=== PATIENT | male | born 1965 | race Caucasian/White ===

== ENCOUNTER 2020-02-29 15:43 | Outpatient (CLI) | payer BC ==
[2020-02-29 16:03] LABS: BASOPHILS # (AUTO) 0.1 10^3/uL (0.0-0.1); BASOPHILS % (AUTO) 1.2 %; EOSINOPHILS # (AUTO) 0.6 10^3/uL (0.0-0.7); EOSINOPHILS % (AUTO) 6.7 %; HGB - HEMOGLOBIN 11.5 g/dL (14.0-18.0); LYMPHOCYTES # (AUTO) 1.9 10^3/uL (1.5-3.5); LYMPHOCYTES % (AUTO) 22.4 %; MEAN CORPUSCULAR HEMOGLOBIN 28.4 pg (27.0-31.0); MEAN CORPUSCULAR HGB CONC 30.2 g/dL (32.0-36.0); MEAN CORPUSCULAR VOLUME 94.1 fL (80.0-94.0); MEAN PLATELET VOLUME 9.7 fL (7.4-11.4); MONOCYTES # (AUTO) 0.7 10^3/uL (0.0-1.0); MONOCYTES % (AUTO) 8.3 %; NEUTROPHILS % (AUTO) 60.9 %; PLT - PLATELET COUNT 236 10^3/uL (130-450); RED BLOOD COUNT 4.05 10^6/uL (4.70-6.10); RED CELL DISTRIBUTION WIDTH 14.2 % (12.0-15.0); WHITE BLOOD COUNT 8.3 x10^3/uL (4.8-10.8)
[2020-02-29 16:16] LABS: INR 2.1 (0.8-1.2); PT - PROTHROMBIN TIME 22.5 secs (9.9-12.6)
[2020-02-29 16:20] LABS: ALBUMIN 4.5 g/dL (3.2-5.5); ALBUMIN/GLOBULIN RATIO 1.7 (1.0-2.2); ALKALINE PHOSPHATASE 66 IU/L (42-121); ALT ALANINE AMINOTRANSFERASE 40 IU/L (10-60); AST ASPARTATE AMINOTRANSFERASE 31 IU/L (10-42); BILIRUBIN,TOTAL 0.8 mg/dL (0.2-1.0); BUN - BLOOD UREA NITROGEN 21 mg/dL (6-20); CALCIUM 9.5 mg/dL (8.5-10.3); CARBON DIOXIDE - CO2 28 mmol/L (21-32); CHLORIDE 103 mmol/L (101-111); CREATININE 1.1 mg/dL (0.6-1.2); GLUCOSE 106 mg/dL (70-100); SODIUM 139 mmol/L (135-145); TOTAL PROTEIN 7.2 g/dL (6.7-8.2)
[2020-02-29 16:55] LABS: CRP - C-REACTIVE PROTEIN < 1.0 mg/dL (0-1.0)
== END 2020-02-29 15:44 | disposition home or self-care (01) ==
LOC: LAB 15:43
PROVIDERS: ATTEND Family Medicine
DX: D64.9 Anemia, unspecified (principal); Z95.2 Presence of prosthetic heart valve
CPT/HCPCS: 36415; 80053; 84443; 85025; 85610; 85651; 85730; 86140

== ENCOUNTER 2020-03-07 15:44 | Outpatient (CLI) | payer BC ==
[2020-03-07 16:27] LABS: INR 1.9 (0.8-1.2); PT - PROTHROMBIN TIME 21.1 secs (9.9-12.6)
== END 2020-03-07 15:45 | disposition home or self-care (01) ==
LOC: LAB 15:44
PROVIDERS: ATTEND Family Medicine
DX: Z95.2 Presence of prosthetic heart valve (principal)
CPT/HCPCS: 36415; 85610

== ENCOUNTER 2020-05-06 12:14 | Outpatient (CLI) | payer BC ==
[2020-05-06 12:47] LABS: INR 1.4 (0.8-1.2); PT - PROTHROMBIN TIME 15.6 secs (9.9-12.6)
== END 2020-05-06 12:15 | disposition home or self-care (01) ==
LOC: LAB 12:14
PROVIDERS: ATTEND Family Medicine
DX: Z95.2 Presence of prosthetic heart valve (principal)
CPT/HCPCS: 36415; 85610

== ENCOUNTER 2020-05-16 15:48 | Outpatient (CLI) | payer BC ==
[2020-05-16 16:09] LABS: INR 1.7 (0.8-1.2); PT - PROTHROMBIN TIME 18.4 secs (9.9-12.6)
== END 2020-05-16 15:49 | disposition home or self-care (01) ==
LOC: LAB 15:48
PROVIDERS: ATTEND Family Medicine
DX: Z95.2 Presence of prosthetic heart valve (principal)
CPT/HCPCS: 36415; 85610

== ENCOUNTER 2020-06-08 13:24 | Outpatient (CLI) | payer BC | END 2020-06-08 13:25 | disposition home or self-care (01) | LOC: LAB 13:24 | PROVIDERS: ATTEND Family Medicine | DX: I48.91 Unspecified atrial fibrillation (principal) | CPT/HCPCS: 85610 ==

== ENCOUNTER 2020-06-27 11:33 | Outpatient (CLI) | payer BC | END 2020-06-27 11:34 | disposition home or self-care (01) | LOC: LAB 11:33 | PROVIDERS: ATTEND Family Medicine | DX: I48.91 Unspecified atrial fibrillation (principal) | CPT/HCPCS: 85610 ==

== ENCOUNTER 2020-07-22 14:34 | Outpatient (CLI) | payer BC | END 2020-07-22 14:35 | disposition home or self-care (01) | LOC: LAB 14:34 | PROVIDERS: ATTEND Family Medicine | DX: I48.91 Unspecified atrial fibrillation (principal) | CPT/HCPCS: 85610 ==

== ENCOUNTER 2020-08-10 13:08 | Outpatient (CLI) | payer BC | END 2020-08-10 13:09 | disposition home or self-care (01) | LOC: LAB 13:08 | PROVIDERS: ATTEND Internal Medicine Gastroenterology | DX: I48.91 Unspecified atrial fibrillation (principal) | CPT/HCPCS: 85610 ==

== ENCOUNTER 2020-09-02 12:11 | Outpatient (CLI) | payer BC | END 2020-09-02 12:12 | disposition home or self-care (01) | LOC: LAB 12:11 | PROVIDERS: ATTEND Family Medicine | DX: I48.91 Unspecified atrial fibrillation (principal) | CPT/HCPCS: 85610 ==

== ENCOUNTER 2020-09-14 08:00 | Outpatient (CLI) | payer BC | END 2020-09-14 23:59 | disposition home or self-care (01) | LOC: LAB 08:00 | PROVIDERS: ATTEND Internal Medicine | DX: Z79.01 Long term (current) use of anticoagulants (principal); Z95.2 Presence of prosthetic heart valve | CPT/HCPCS: 85610 ==

== ENCOUNTER 2020-10-06 13:13 | Outpatient (CLI) | payer BC | END 2020-10-06 13:14 | disposition home or self-care (01) | LOC: LAB 13:13 | PROVIDERS: ATTEND Internal Medicine | DX: Z95.2 Presence of prosthetic heart valve (principal); Z79.01 Long term (current) use of anticoagulants | CPT/HCPCS: 85610 ==

== ENCOUNTER 2020-10-26 15:29 | Outpatient (CLI) | payer BC | END 2020-10-26 15:30 | disposition home or self-care (01) | LOC: LAB 15:29 | PROVIDERS: ATTEND Internal Medicine | DX: Z79.01 Long term (current) use of anticoagulants (principal); Z95.2 Presence of prosthetic heart valve | CPT/HCPCS: 85610 ==

== ENCOUNTER 2020-11-17 11:53 | Outpatient (CLI) | payer BC | END 2020-11-17 11:54 | disposition home or self-care (01) | LOC: RT 11:53 | PROVIDERS: ATTEND Internal Medicine Cardiovascular Disease | DX: Z95.2 Presence of prosthetic heart valve (principal) | CPT/HCPCS: 93005 ==

== ENCOUNTER 2020-12-05 07:00 | Outpatient (CLI) | payer BC | END 2020-12-05 23:59 | disposition home or self-care (01) | LOC: LAB 07:00 | PROVIDERS: ATTEND Internal Medicine | DX: Z79.01 Long term (current) use of anticoagulants (principal); Z95.2 Presence of prosthetic heart valve | CPT/HCPCS: 85610 ==

== ENCOUNTER 2021-01-05 12:28 | Outpatient (CLI) | payer BC | END 2021-01-05 12:29 | disposition home or self-care (01) | LOC: LAB 12:28 | PROVIDERS: ATTEND Internal Medicine | DX: Z79.01 Long term (current) use of anticoagulants (principal); Z95.2 Presence of prosthetic heart valve | CPT/HCPCS: 36416; 85610 ==

== ENCOUNTER 2021-01-14 10:54 | Outpatient (CLI) | payer BC ==
--- NOTE | 2021-01-14 20:42 | XRAY Report ---
PROCEDURE: Knee 3 View RT INDICATIONS: PATELLO-FEMORAL SYNDROME TECHNIQUE: 3 views of the right knee(s) were acquired. COMPARISON: None. FINDINGS: Bones: No fractures or dislocations. No suspicious bony lesions. On the sunrise view, there is mild lateral patellofemoral joint space narrowing, with associated rem odeling changes, including spurs along the margins of the patella. Soft tissues: There is a mild to moderate joint effusion. No suspicious soft tissue calcifications. IMPRESSION: Mild lateral patellofemoral joint space narrowing. Mild to moderate joint effusion. If there is strong clinical concern for internal derangement of the knee, please consider a dedicated knee MRI for further evaluation (assuming that there is no contraindication). Reviewed by: Manohar Burden MD on 01/14/2021 7:41 PM [facility] Approved by: Manohar Burden MD on 01/14/2021 7:41 PM [facility] Station ID: [id number]
== END 2021-01-14 10:55 | disposition home or self-care (01) ==
LOC: DI.N 10:54
PROVIDERS: ATTEND Family Medicine
DX: M17.11 Unilateral primary osteoarthritis, right knee (principal); M25.461 Effusion, right knee

== ENCOUNTER 2021-02-09 12:29 | Outpatient (CLI) | payer BC ==
[2021-02-09 12:57] LABS: BASOPHILS # (AUTO) 0.1 10^3/uL (0.0-0.1); EOSINOPHILS # (AUTO) 0.3 10^3/uL (0.0-0.7); EOSINOPHILS % (AUTO) 4.2 %; HCT - HEMATOCRIT 43.8 % (42.0-52.0); HGB - HEMOGLOBIN 14.9 g/dL (14.0-18.0); LYMPHOCYTES # (AUTO) 2.1 10^3/uL (1.5-3.5); LYMPHOCYTES % (AUTO) 28.8 %; MEAN CORPUSCULAR HEMOGLOBIN 31.4 pg (27.0-31.0); MEAN CORPUSCULAR VOLUME 92.4 fL (80.0-94.0); MEAN PLATELET VOLUME 9.5 fL (7.4-11.4); MONOCYTES # (AUTO) 0.7 10^3/uL (0.0-1.0); MONOCYTES % (AUTO) 9.6 %; NEUTROPHILS # (AUTO) 4.1 10^3/uL (1.5-6.6); NEUTROPHILS % (AUTO) 55.9 %; PLT - PLATELET COUNT 191 10^3/uL (130-450); RED BLOOD COUNT 4.74 10^6/uL (4.70-6.10); RED CELL DISTRIBUTION WIDTH 12.4 % (12.0-15.0); WHITE BLOOD COUNT 7.4 x10^3/uL (4.8-10.8)
[2021-02-09 13:10] LABS: ALBUMIN 4.5 g/dL (3.2-5.5); ALBUMIN/GLOBULIN RATIO 1.6 (1.0-2.2); BILIRUBIN,TOTAL 0.8 mg/dL (0.2-1.0); CALCIUM 9.8 mg/dL (8.5-10.3); POTASSIUM 4.3 mmol/L (3.5-5.0); TOTAL PROTEIN 7.3 g/dL (6.7-8.2)
== END 2021-02-09 12:30 | disposition home or self-care (01) ==
LOC: LAB 12:29
PROVIDERS: ATTEND Internal Medicine
DX: Z79.01 Long term (current) use of anticoagulants (principal); Z95.2 Presence of prosthetic heart valve; I10 Essential (primary) hypertension; Z12.5 Encounter for screening for malignant neoplasm of prostate
CPT/HCPCS: 36415; 80053; 84153; 85025; 85610

== ENCOUNTER 2021-03-08 12:10 | Outpatient (CLI) | payer BC | END 2021-03-08 12:11 | disposition home or self-care (01) | LOC: LAB 12:10 | PROVIDERS: ATTEND Internal Medicine | DX: Z79.01 Long term (current) use of anticoagulants (principal); Z95.2 Presence of prosthetic heart valve | CPT/HCPCS: 36416; 85610 ==

== ENCOUNTER 2021-03-17 07:19 | Emergency (ER) | payer BC ==
[2021-03-17 07:56] LABS: BASOPHILS # (AUTO) 0.1 10^3/uL (0.0-0.1); BASOPHILS % (AUTO) 0.9 %; EOSINOPHILS # (AUTO) 0.2 10^3/uL (0.0-0.7); EOSINOPHILS % (AUTO) 3.3 %; HGB - HEMOGLOBIN 15.5 g/dL (14.0-18.0); LYMPHOCYTES # (AUTO) 1.9 10^3/uL (1.5-3.5); LYMPHOCYTES % (AUTO) 27.8 %; MEAN CORPUSCULAR HEMOGLOBIN 31.6 pg (27.0-31.0); MEAN CORPUSCULAR HGB CONC 33.7 g/dL (32.0-36.0); MEAN CORPUSCULAR VOLUME 93.7 fL (80.0-94.0); MEAN PLATELET VOLUME 9.5 fL (7.4-11.4); MONOCYTES # (AUTO) 0.6 10^3/uL (0.0-1.0); MONOCYTES % (AUTO) 8.9 %; NEUTROPHILS # (AUTO) 4.1 10^3/uL (1.5-6.6); NEUTROPHILS % (AUTO) 58.4 %; PLT - PLATELET COUNT 188 10^3/uL (130-450); RED BLOOD COUNT 4.91 10^6/uL (4.70-6.10); RED CELL DISTRIBUTION WIDTH 12.6 % (12.0-15.0)
--- NOTE | 2021-03-17 08:19 | ED Physician Documentation ---
History of Present Illness - Stated complaint Stated Complaint: IRREGULAR HEARTBEAT - Chief complaint Chief Complaint: Cardiac - History obtained from History obtained from: Patient, Family - History of Present Illness Timing: Today Pain level max: 0 Pain level now: 0 - Additonal information Additional information: Patient is a 56-year-old male who had his aortic valve replaced last year in [place]. He states that today he has episode of heart racing. Normally has an audible click with his valve, states it seems louder today. No chest pain. No shortness of breath. Has had atrial flutter/atrial fibrillation in the past, but not for several years. Nothing makes it better or worse. No fevers. No ch ills. No nausea. No vomiting, diarrhea Review of Systems Ten Systems: 10 systems reviewed and negative Constitutional: denies: Fever, Chills Throat: denies: Sore throat Cardiac: denies: Chest pain / pressure, Palpitations Respiratory: denies: Dyspnea, Cough GI: denies: Vomiting, Diarrhea Skin: denies: Rash Musculoskeletal: denies: Neck pain, Back pain Neurologic: denies: Headache PD PAST MEDICAL HISTORY - Past Medical History Past Medical History: Yes Cardiovascular: Atrial flutter, Atrial fibrillation - Past Surgical History Past Surgical History: Yes Cardiovascular: Valve replacement - Present Medications Home Medications: Ambulatory Orders Medication Instructions Recorded Confirmed Aspirin [[place] Aspirin] 1 tab PO DAILY 03/17/21 03/17/21 Lisinopril [Zestril] 1 tab PO DAILY 03/17/21 03/17/21 Warfarin [Coumadin] 7.5 mg PO DAILY 03/17/21 03/17/21 - Allergies Allergies/Adverse Reactions: Allergies Allergy/AdvReac Type Severity Reaction Status Date / Time No Known Drug Allergies Allergy Verified 03/17/21 07:28 - Living Situation Living Situation: reports: With family Living Arrangement: reports: At home - Social History Does the pt smoke?: No Smoking Status: Never smoker Does the pt drink ETOH?: Yes ETOH Use: Wine Does the pt have substance abuse?: No PD ED PE NORMAL - Vitals Vital signs reviewed: Yes - General General: Alert and oriented X 3, No acute distress - HEENT HEENT: Moist mucous membranes - Neck Neck: Supple, no meningeal sign - Cardiac Cardiac: RRR, Strong equal pulses - Respiratory Respiratory: No respiratory distress, Clear bilaterally - Abdomen Abdomen: Soft, Non tender, Non distended - Derm Derm: Warm and dry - Neuro Neuro: Alert and oriented X 3 - Psych Psych: Normal mood, Normal affect Results - Vitals Vitals: Vital Signs - 24 hr 03/17/21 03/17/21 03/17/21 07:24 08:11 08:31 Temperature 36.2 C L Heart Rate 96 166 H 91 Respiratory 16 12 10 L Rate Blood Pressure 151/123 H 160/120 H 145/92 H O2 Saturation 97 98 94 03/17/21 03/17/21 03/17/21 09:45 10:29 10:30 Temperature Heart Rate 133 H 137 H 140 H Respiratory 12 20 16 Rate Blood Pressure 124/98 H 142/111 H O2 Saturation 98 97 03/17/21 03/17/21 03/17/21 10:36 10:42 10:53 Temperature Heart Rate 71 69 69 Respiratory 14 12 14 Rate Blood Pressure 135/107 H 136/94 H 141/92 H O2 Saturation 97 96 95 03/17/21 03/17/21 03/17/21 10:56 11:07 11:33 Temperature Heart Rate 64 69 69 Respiratory 16 16 16 Rate Blood Pressure 133/96 H 142/96 H 140/92 H O2 Saturation 96 97 97 Oxygen O2 Source Room air - EKG (time done) 0732 Rate: Rate (enter#) (136) Rhythm: Atrial fibrillation [place]: Normal QRS: Normal Ischemia: Non specific changes 1036 Rate: Rate (enter#) (70) Rhythm: NSR [place]: Normal Intervals: Normal SD QRS: Normal Ischemia: Normal ST segments - Labs Labs: Laboratory Tests 03/17/21 03/17/21 03/17/21 07:46 07:46 07:46 WBC 7.0 RBC 4.91 Hgb 15.5 Hct 46.0 MCV 93.7 MCH 31.6 H MCHC 33.7 RDW 12.6 Plt Count 188 MPV 9.5 Neut # (Auto) 4.1 Lymph # (Auto) 1.9 [place] # (Auto) 0.6 Eos # (Auto) 0.2 Baso # (Auto) 0.1 Absolute Nucleated RBC 0.00 Nucleated RBC % 0.0 PT INR Sodium 142 Potassium 4.4 Chloride 107 Carbon Dioxide 27 Anion Gap 8.0 BUN 20 Creatinine 1.1 Estimated GFR (MDRD) 69 L Glucose 99 Calcium 9.8 Total Bilirubin 1.0 AST 30 ALT 42 Alkaline Phosphatase 47 Troponin I High Sens 15.9 Total Protein 7.5 Albumin 4.5 Globulin 3.0 Albumin/Globulin Ratio 1.5 Lipase 30 03/17/ 07:46 WBC RBC Hgb Hct MCV MCH MCHC RDW Plt Count MPV Neut # (Auto) Lymph # (Auto) [place] # (Auto) Eos # (Auto) Baso # (Auto) Absolute Nucleated RBC Nucleated RBC % PT 21.8 H INR 2.0 H Sodium Potassium Chloride Carbon Dioxide Anion Gap BUN Creatinine Estimated GFR (MDRD) Glucose Calcium Total Bilirubin AST ALT Alkaline Phosphatase Troponin I High Sens Total Protein Albumin Globulin Albumin/Globulin Ratio Lipase - Rads (name of study) cxr Radiology: Prelim report reviewed, EMP read contemporaneously, See rad report (no acute abnormality.) Procedures - Procedural sedation Sedation prep: Informed consent, Time out completed, Last meal (12 hours prior to arrival), PE performed, ASA 2 - mild disease Sedation medications: propofol, given by MD Patient status during sedation: Drowsy, Vitals remained stable, Maintained airway, Recovered uneventfully Sedation recovery: Recovered uneventfully Time in sedation (Minutes): 15 - Cardioversion 1 Time of attempt: 10:30 Indication: Tachyarrhythmia Risks, benefits, alternatives explained to: Pt Prep: IV, O2, desk monitor, Pulse ox, Airway equip (End-tidal CO2) Meds: Propofol CS via: Pads, Anterolateral Sync: Biphasic, 100j Post cardioversion rhythm: NSR Complications: Other (None) Performed by: ED MD PD MEDICAL DECISION MAKING - ED course Complexity details: reviewed results, re-evaluated patient, considered differential, d/w patient ED course: Patient failed to convert with Cardizem and procainamide. Discussed risks and benefits of electrical cardioversion as he is anticoagulated. Also offered admission to the hospital on a diltiazem drip for rate control. Patient elects to go forward with electrical cardioversion. He was given propofol and cardioverted. Back into a sinus rhythm. Asymptomatic. We will have him follow-up with his digital analyst for further care. Patient and family counseled regarding signs and symptoms for which I believe and urgent re-evaluation would be necessary. Patient with good understanding of and agreement to plan and is comfortable going home at this time This document was made in part using voice recognition software. While efforts are made to proofread this document, sound alike and grammatical errors may occur. Departure - Departure Disposition: 01 Home, Self Care Clinical Impression: Atrial fibrillation Qualifiers: Atrial fibrillation type: paroxysmal Qualified Code(s): I48.0 - Paroxysmal atr ial fibrillation Condition: Good Instructions: ED Afib Follow-Up: Shira Diaz MD [Provider Admit Priv/Credential] - Casey Payan MD [Credentialed Staff Provider] - Within 1 week Comments: We have electrically cardioverted you back into a sinus rhythm. Please follow- up with your doctor for further care. Return if you worsen. Your testing does not show any other acute abnormalities today. Discharge Date/Time: 03/17/21 11:33
[2021-03-17] MEDS ORDERED: diltiaZEM INJ 5 MG/ML VIAL IVP STA (08:20)
[2021-03-17] MEDS ORDERED: PROCAINAMIDE 1,000 MG in SODIUM CHLORIDE 0.9% 240 ML IV STA (08:20)
[2021-03-17 08:22] LABS: ALBUMIN 4.5 g/dL (3.2-5.5); ALBUMIN/GLOBULIN RATIO 1.5 (1.0-2.2); CALCIUM 9.8 mg/dL (8.5-10.3); CREATININE 1.1 mg/dL (0.6-1.2); POTASSIUM 4.4 mmol/L (3.5-5.0); PT - PROTHROMBIN TIME 21.8 secs (9.9-12.6); TOTAL PROTEIN 7.5 g/dL (6.7-8.2)
--- NOTE | 2021-03-17 08:22 | XRAY Report ---
PROCEDURE: Chest 1 View X-Ray INDICATIONS: Chest pain TECHNIQUE: One view of the chest was acquired. COMPARISON: None FINDINGS: Surgical changes and devices: Median sternotomy changes. Lungs and pleura: No pleural effusions or pneumothorax. Lungs are clear. Mediastinum: Mediastinal contours appear normal. Heart size is normal. Bones and chest wall: No suspicious bony lesions. Overlying soft tissues appear unremarkable. IMPRESSION: No acute cardiopulmonary process demonstrated radiographically. Reviewed by: Albin Todd MD on 03/17/2021 8:20 AM PDT Approved by: Albin Todd MD on 03/17/2021 8:20 AM PDT Station ID: [id number]
[2021-03-17] MEDS ORDERED: PROPOFOL 200 MG/20 ML VIAL IVP STA (10:19)
[2021-03-17] MEDS ORDERED: SODIUM CHLORIDE 0.9% 1,000 ML IV STA (10:19)
[2021-03-17 11:53] VITALS: BP 140/92
== END 2021-03-17 11:33 | disposition home or self-care (01) ==
LOC: ED 07:19
DX: I48.0 Paroxysmal atrial fibrillation (principal); Z79.01 Long term (current) use of anticoagulants
CPT/HCPCS: 36415; 71045; 80053; 83690; 84484; 85025; 85610; 92960; 93005; 96365; 96375; 99152; 99284; 99285; J2690; 94770

== ENCOUNTER 2021-05-02 14:43 | Outpatient (CLI) | payer BC | END 2021-05-02 14:44 | disposition home or self-care (01) | LOC: LAB 14:43 | PROVIDERS: ATTEND Internal Medicine | DX: Z79.01 Long term (current) use of anticoagulants (principal); Z95.2 Presence of prosthetic heart valve | CPT/HCPCS: 36416; 85610 ==

== ENCOUNTER 2021-06-13 14:26 | Outpatient (CLI) | payer BC | END 2021-06-13 14:27 | disposition home or self-care (01) | LOC: LAB 14:26 | PROVIDERS: ATTEND Internal Medicine | DX: Z79.01 Long term (current) use of anticoagulants (principal); Z95.2 Presence of prosthetic heart valve | CPT/HCPCS: 36416; 85610 ==

== ENCOUNTER 2021-07-17 14:53 | Outpatient (CLI) | payer BC | END 2021-07-17 14:54 | disposition home or self-care (01) | LOC: LAB 14:53 | PROVIDERS: ATTEND Internal Medicine | DX: Z95.2 Presence of prosthetic heart valve (principal); Z79.01 Long term (current) use of anticoagulants | CPT/HCPCS: 36416; 85610 ==

== ENCOUNTER 2021-08-01 15:15 | Outpatient (CLI) | payer BC ==
[2021-08-01 18:16] LABS: BASOPHILS # (AUTO) 0.1 10^3/uL (0.0-0.1); BASOPHILS % (AUTO) 0.9 %; EOSINOPHILS # (AUTO) 0.3 10^3/uL (0.0-0.7); EOSINOPHILS % (AUTO) 3.2 %; HCT - HEMATOCRIT 47.7 % (42.0-52.0); HGB - HEMOGLOBIN 15.7 g/dL (14.0-18.0); LYMPHOCYTES # (AUTO) 2.1 10^3/uL (1.5-3.5); MEAN CORPUSCULAR HEMOGLOBIN 31.1 pg (27.0-31.0); MEAN CORPUSCULAR HGB CONC 32.9 g/dL (32.0-36.0); MEAN CORPUSCULAR VOLUME 94.5 fL (80.0-94.0); MEAN PLATELET VOLUME 10.7 fL (7.4-11.4); MONOCYTES # (AUTO) 0.8 10^3/uL (0.0-1.0); MONOCYTES % (AUTO) 8.8 %; NEUTROPHILS # (AUTO) 6.1 10^3/uL (1.5-6.6); NEUTROPHILS % (AUTO) 64.3 %; PLT - PLATELET COUNT 147 10^3/uL (130-450); RED BLOOD COUNT 5.05 10^6/uL (4.70-6.10); RED CELL DISTRIBUTION WIDTH 12.4 % (12.0-15.0); WHITE BLOOD COUNT 9.5 x10^3/uL (4.8-10.8)
[2021-08-01 18:33] LABS: ALBUMIN 4.6 g/dL (3.2-5.5); ALBUMIN/GLOBULIN RATIO 1.5 (1.0-2.2); ALKALINE PHOSPHATASE 42 IU/L (42-121); ALT ALANINE AMINOTRANSFERASE 46 IU/L (10-60); AST ASPARTATE AMINOTRANSFERASE 33 IU/L (10-42); BILIRUBIN,TOTAL 0.6 mg/dL (0.2-1.0); BUN - BLOOD UREA NITROGEN 19 mg/dL (6-20); CALCIUM 9.8 mg/dL (8.5-10.3); CARBON DIOXIDE - CO2 28 mmol/L (21-32); CHLORIDE 102 mmol/L (101-111); GFR - MDRD 78 (>89); GLUCOSE 99 mg/dL (70-100); POTASSIUM 4.4 mmol/L (3.5-5.0); SODIUM 139 mmol/L (135-145); TOTAL PROTEIN 7.6 g/dL (6.7-8.2)
[2021-08-01 18:38] LABS: THYROID STIMULATING HORMONE 1.18 uIU/mL (0.34-5.60)
[2021-08-01 19:36] LABS: CRP - C-REACTIVE PROTEIN < 1.0 mg/dL (0-1.0)
== END 2021-08-01 23:59 | disposition home or self-care (01) ==
LOC: LAB.N 15:15
PROVIDERS: ATTEND Family Medicine
DX: I48.91 Unspecified atrial fibrillation (principal); R42 Dizziness and giddiness
CPT/HCPCS: 36415; 80053; 84443; 85025; 85651; 86140

== ENCOUNTER 2021-08-04 13:19 | Outpatient (CLI) | payer BC | END 2021-08-04 13:20 | disposition home or self-care (01) | LOC: LAB 13:19 | PROVIDERS: ATTEND Internal Medicine | DX: Z79.01 Long term (current) use of anticoagulants (principal); Z95.2 Presence of prosthetic heart valve | CPT/HCPCS: 36416; 85610 ==

== ENCOUNTER 2021-08-10 08:55 | Outpatient (CLI) | payer BC ==
[2021-08-10] MEDS ORDERED: GADOBUTROL 15 MMOL/15 ML VIAL ONE (09:27)
--- NOTE | 2021-08-10 10:40 | MRI Report ---
PROCEDURE: Brain W/WO INDICATIONS: VERTIGO, ORTHOSTATIC DIZZINESS CONTRAST: IV CONTRAST: Gadavist ml: 12.2 TECHNIQUE: Noncontrast axial T1 spin echo, axial T2 fast spin echo, sagittal and axial FLAIR, coronal T2 fast sp in echo, axial gradient echo, axial diffusion and ADC through the brain. After the administration of contrast, axial and coronal T1 spin echo with fat saturation through the brain. COMPARISON: None. FINDINGS: Image quality: Excellent. CSF spaces: Basal cisterns are patent. No extra-axial fluid collections. Ventricles are normal in size and shape. Brain: No midline shift. No intracranial bleeds or masses. No abnormal intracranial enhancement. There is minimal cerebral volume loss for age. There is minimal periventricular white matter chronic small vessel ischemic change. The brainstem appears normal. Diffusion-weighted images demonstrate no acute ischemic insults. No chronic ischemic insults. Normal intravascular flow voids are present . Dural sinuses demonstrate normal postcontrast enhancement. Skull and face: Calvarial marrow is normal in signal. Orbits appear normal. Sinuses: Sinuses and mastoids appear clear. IMPRESSION: 1. No acute intracranial disease process. 2. No areas of acute or chronic infarction. 3. No abnormal internal mass or mass effect. 4. No suspicious postcontrast enhancement. Reviewed by: Gia Holly MD, PhD on 08/10/2021 10:38 AM [facility] Approved by: Gia Holly MD, PhD on 08/10/2021 10:38 AM [facility] Station ID: [id number]
[2021-08-10] MEDS ORDERED: GADOBUTROL 15 MMOL/15 ML VIAL IVP ONE (16:14)
== END 2021-08-10 08:56 | disposition home or self-care (01) ==
LOC: DI 08:55
PROVIDERS: ATTEND Family Medicine
DX: I48.91 Unspecified atrial fibrillation (principal); Z95.2 Presence of prosthetic heart valve; R42 Dizziness and giddiness
CPT/HCPCS: 70553; A9585

== ENCOUNTER 2021-09-21 09:07 | Outpatient (CLI) | payer BC | END 2021-09-21 09:08 | disposition home or self-care (01) | LOC: LAB 09:07 | PROVIDERS: ATTEND Internal Medicine | DX: Z79.01 Long term (current) use of anticoagulants (principal); Z95.2 Presence of prosthetic heart valve | CPT/HCPCS: 36416; 85610 ==

== ENCOUNTER 2021-10-05 09:12 | Day surgery (SDC) | payer BC ==
[2021-10-05] MEDS ORDERED: LACTATED RINGERS 1,000 ML IV ONE ×2 (09:37→12:39)
--- NOTE | 2021-10-05 10:29 | ANESTHESIA ---
Pre-Anesthesia VS, & Labs - Diagnosis screening - Procedure colonoscopy Vital Signs: Temp Pulse Resp BP Pulse Ox 36 C L 67 15 174/99 H 99 10/05/21 09:47 10/05/21 09:47 10/05/21 09:47 10/05/21 09:47 10/05/21 09:47 Height: 6 ft 4 in Weight (kg): 121.5 kg Body Mass Index: 32.5 BMI Classification: Obese - NPO >8 hours Home Medications and Allergies Aspirin [[place] Aspirin] 1 tab PO DAILY 03/17/21 Lisinopril [Zestril] 1 tab PO DAILY 03/17/21 Warfarin [Coumadin] 7.5 mg PO DAILY 03/17/21 Allergies/Adverse Reactions: Allergies Allergy/AdvReac Type Severity Reaction Status Date / Time No Known Drug Allergies Allergy Verified 03/17/21 07:28 Anes History & Medical History - Anesthetic History Anesthesia Complications: reports: No previous complications Family history of Anesthesia Complications: Denies - Medical History Cardiovascular: reports: Atrial flutter, Atrial fibrillation, Valve disorder Pulmonary: reports: None Gastrointestinal: reports: None Neuro: reports: Other (poor memory post AVR 2019) Smoking Status: Never smoker Psychosocial: reports: Alcohol - Surgical History Cardiothoracic: reports: Valve replacement, Other (cardioversion 02/2021) Orthopedic: reports: Arthroscopic surgery Exam General: Alert, Oriented x3, Cooperative Dental: WNL Mouth Openin Fingerbreadth Neck Mobility: Normal Mallampati classification: II Thyromental Distance: 4-6 cm Respiratory: Lungs clear Cardiovascular: Regular rate Abdomen: Normal bowel sounds Extremities: No clubbing Neurological: Normal gait Plan Anesthesia Type: Total IV Consent for Procedure(s) Verified and Reviewed: Yes Code Status: Attempt Resuscitation ASA classification: 3-Severe systemic disease Is this case an emergency?: No
[2021-10-05] MEDS ORDERED: PROPOFOL 500 MG/50 ML 500 MG/50 ML VIAL ONE (11:14)
[2021-10-05] MEDS ORDERED: fentaNYL 100 MCG/2 ML VIAL ONE (11:16)
[2021-10-05] MEDS ORDERED: MIDAZOLAM 2 MG/2 ML VIAL ONE (11:16)
[2021-10-05] MEDS ORDERED: PROPOFOL 200 MG/20 ML VIAL IVP ONE (12:14)
[2021-10-05 12:49] VITALS: BP 132/79
--- NOTE | 2021-10-05 12:51 | ANESTHESIA POST OP EVALUATION ---
Anesthesia Post Eval - Post Anesthesia Eval Vitals: Last Vital Signs Temp 36 C L 10/05/21 12:48 Pulse 53 L 10/05/21 12:48 Resp 10 L 10/05/21 12:48 BP 132/79 H 10/05/21 12:48 Pulse Ox 100 10/05/21 12:48 CV Function Including HR & BP: Stable Pain Control: Satisfactory Nausea & Vomiting: Negative Mental Status: Baseline Respiratory Status: Airway Patent Hydration Status: Satisfactory Anesthesia Complications: None
== END 2021-10-05 09:13 | disposition home or self-care (01) ==
LOC: SDS 09:12
PROVIDERS: ATTEND Surgery
DX: Z12.11 Encounter for screening for malignant neoplasm of colon (principal); K57.30 Diverticulosis of large intestine without perforation or abscess without bleeding; E66.9 Obesity, unspecified; I48.0 Paroxysmal atrial fibrillation; I10 Essential (primary) hypertension; Z68.35 Body mass index [BMI] 35.0-35.9, adult; Z79.01 Long term (current) use of anticoagulants; Z79.82 Long term (current) use of aspirin; Z79.899 Other long term (current) drug therapy
CPT/HCPCS: 45378; J7120

== ENCOUNTER 2021-11-07 15:02 | Outpatient (CLI) | payer BC | END 2021-11-07 15:03 | disposition home or self-care (01) | LOC: LAB 15:02 | PROVIDERS: ATTEND Internal Medicine | DX: Z79.01 Long term (current) use of anticoagulants (principal); Z95.2 Presence of prosthetic heart valve | CPT/HCPCS: 36416; 85610 ==

== ENCOUNTER 2021-12-22 14:29 | Outpatient (CLI) | payer BC | END 2021-12-22 14:30 | disposition home or self-care (01) | LOC: LAB 14:29 | PROVIDERS: ATTEND Internal Medicine | DX: Z79.01 Long term (current) use of anticoagulants (principal); Z95.2 Presence of prosthetic heart valve | CPT/HCPCS: 36416; 85610 ==

== ENCOUNTER 2022-02-02 11:49 | Outpatient (CLI) | payer BC | END 2022-02-02 11:50 | disposition home or self-care (01) | LOC: LAB 11:49 | PROVIDERS: ATTEND Family Medicine | DX: Z79.01 Long term (current) use of anticoagulants (principal); Z95.2 Presence of prosthetic heart valve | CPT/HCPCS: 36416; 85610 ==

== ENCOUNTER 2022-02-02 12:28 | Outpatient (CLI) | payer BC ==
--- NOTE | 2022-02-02 13:22 | XRAY Report ---
PROCEDURE: Cervical Spine 2 View INDICATIONS: RADICULOPATHY, CERVICAL REGION TECHNIQUE: 3 view(s) of the cervical spine were acquired. COMPARISON: None. FINDINGS: Bones: No fractures or dislocations to the C7 level. Straightening of cervical curvature. There is m oderate degenerative disc disease at C4-C5, C5-C6 and C6-C7. Mild bilateral facet arthropathy. The la teral masses of C1 appear intact on the odontoid view. No suspicious bony lesions. Soft tissues: No prevertebral soft tissue swelling. IMPRESSION: Moderate degenerative disc disease in cervical spine. Reviewed by: Broderick Lucas MD on 02/02/2022 1:21 PM PDT Approved by: Broderick Lucas MD on 02/02/2022 1:21 PM PDT Station ID: [id number]
== END 2022-02-02 12:29 | disposition home or self-care (01) ==
LOC: DI 12:28
PROVIDERS: ATTEND Family Medicine
DX: M47.22 Other spondylosis with radiculopathy, cervical region (principal); M50.121 Cervical disc disorder at C4-C5 level with radiculopathy; Z79.01 Long term (current) use of anticoagulants; Z95.2 Presence of prosthetic heart valve
CPT/HCPCS: 36416; 85610

== ENCOUNTER 2022-03-20 14:34 | Outpatient (CLI) | payer BC | END 2022-03-20 14:35 | disposition home or self-care (01) | LOC: LAB 14:34 | PROVIDERS: ATTEND Family Medicine | DX: Z79.01 Long term (current) use of anticoagulants (principal); Z95.2 Presence of prosthetic heart valve | CPT/HCPCS: 36416; 85610 ==

== ENCOUNTER 2022-05-07 14:49 | Outpatient (CLI) | payer BC | END 2022-05-07 14:50 | disposition home or self-care (01) | LOC: LAB 14:49 | PROVIDERS: ATTEND Family Medicine | DX: Z79.01 Long term (current) use of anticoagulants (principal); Z95.2 Presence of prosthetic heart valve | CPT/HCPCS: 36416; 85610 ==

== ENCOUNTER 2022-06-18 15:22 | Outpatient (CLI) | payer BC | END 2022-06-18 15:23 | disposition home or self-care (01) | LOC: LAB 15:22 | PROVIDERS: ATTEND Family Medicine | DX: Z79.01 Long term (current) use of anticoagulants (principal); Z95.2 Presence of prosthetic heart valve | CPT/HCPCS: 36416; 85610 ==

== ENCOUNTER 2022-07-27 13:22 | Outpatient (CLI) | payer BC | END 2022-07-27 13:23 | disposition home or self-care (01) | LOC: LAB 13:22 | PROVIDERS: ATTEND Family Medicine | DX: Z79.01 Long term (current) use of anticoagulants (principal); Z95.2 Presence of prosthetic heart valve | CPT/HCPCS: 36416; 85610 ==

== ENCOUNTER 2022-08-28 13:11 | Outpatient (CLI) | payer BC | END 2022-08-28 13:12 | disposition home or self-care (01) | LOC: LAB 13:11 | PROVIDERS: ATTEND Family Medicine | DX: Z79.01 Long term (current) use of anticoagulants (principal); Z95.2 Presence of prosthetic heart valve | CPT/HCPCS: 36416; 85610 ==

== ENCOUNTER 2022-10-10 15:42 | Outpatient (CLI) | payer BC | END 2022-10-10 15:43 | disposition home or self-care (01) | LOC: LAB 15:42 | PROVIDERS: ATTEND Family Medicine | DX: Z79.01 Long term (current) use of anticoagulants (principal); Z95.2 Presence of prosthetic heart valve | CPT/HCPCS: 36416; 85610 ==

== ENCOUNTER 2022-10-30 15:01 | Outpatient (CLI) | payer BC | END 2022-10-30 15:02 | disposition home or self-care (01) | LOC: LAB 15:01 | PROVIDERS: ATTEND Family Medicine | DX: Z79.01 Long term (current) use of anticoagulants (principal); Z95.2 Presence of prosthetic heart valve | CPT/HCPCS: 36416; 85610 ==

== ENCOUNTER 2022-11-15 13:16 | Outpatient (CLI) | payer BC | END 2022-11-15 13:17 | disposition home or self-care (01) | LOC: LAB 13:16 | PROVIDERS: ATTEND Family Medicine | DX: Z79.01 Long term (current) use of anticoagulants (principal); Z95.2 Presence of prosthetic heart valve | CPT/HCPCS: 36416; 85610 ==

== ENCOUNTER 2023-02-25 12:30 | Outpatient (CLI) | payer BC | END 2023-02-25 12:31 | disposition home or self-care (01) | LOC: LAB 12:30 | PROVIDERS: ATTEND Family Medicine | DX: Z79.01 Long term (current) use of anticoagulants (principal); Z95.2 Presence of prosthetic heart valve | CPT/HCPCS: 36416; 85610 ==

== ENCOUNTER 2023-04-11 14:08 | Outpatient (CLI) | payer BC | END 2023-04-11 14:09 | disposition home or self-care (01) | LOC: LAB 14:08 | PROVIDERS: ATTEND Family Medicine | DX: Z79.01 Long term (current) use of anticoagulants (principal); Z95.2 Presence of prosthetic heart valve | CPT/HCPCS: 36416; 85610 ==

== ENCOUNTER 2023-05-16 08:20 | Outpatient (CLI) | payer BC ==
[2023-05-16 08:36] LABS: BASOPHILS # (AUTO) 0.1 10^3/uL (0.0-0.1); EOSINOPHILS # (AUTO) 0.3 10^3/uL (0.0-0.7); EOSINOPHILS % (AUTO) 3.2 %; HCT - HEMATOCRIT 46.4 % (42.0-52.0); HGB - HEMOGLOBIN 15.5 g/dL (14.0-18.0); LYMPHOCYTES # (AUTO) 2.4 10^3/uL (1.5-3.5); LYMPHOCYTES % (AUTO) 26.5 %; MEAN CORPUSCULAR HEMOGLOBIN 31.6 pg (27.0-31.0); MEAN CORPUSCULAR HGB CONC 33.4 g/dL (32.0-36.0); MEAN CORPUSCULAR VOLUME 94.7 fL (80.0-94.0); MEAN PLATELET VOLUME 9.7 fL (7.4-11.4); MONOCYTES # (AUTO) 0.9 10^3/uL (0.0-1.0); NEUTROPHILS # (AUTO) 5.2 10^3/uL (1.5-6.6); NEUTROPHILS % (AUTO) 58.4 %; PLT - PLATELET COUNT 197 10^3/uL (130-450); RED CELL DISTRIBUTION WIDTH 12.8 % (12.0-15.0); WHITE BLOOD COUNT 8.9 x10^3/uL (4.8-10.8)
[2023-05-16 08:48] LABS: INR 2.3 (0.8-1.2); PT - PROTHROMBIN TIME 24.5 secs (9.9-12.6)
[2023-05-16 08:56] LABS: ALBUMIN 4.3 g/dL (3.2-5.5); ALBUMIN/GLOBULIN RATIO 1.9 (1.0-2.2); ALKALINE PHOSPHATASE 46 IU/L (42-121); ALT ALANINE AMINOTRANSFERASE 41 IU/L (10-60); AST ASPARTATE AMINOTRANSFERASE 27 IU/L (10-42); BILIRUBIN,TOTAL 0.5 mg/dL (0.2-1.0); BUN - BLOOD UREA NITROGEN 21 mg/dL (6-20); CALCIUM 9.4 mg/dL (8.5-10.3); CARBON DIOXIDE - CO2 29 mmol/L (21-32); CHLORIDE 105 mmol/L (101-111); CHOL/HDL RATIO 4.8 (<5.0); CHOLESTEROL 186 mg/dL; CREATININE 1.3 mg/dL (0.6-1.3); GFR - MDRD 57 (>89); GLUCOSE 97 mg/dL (74-104); HDL CHOLESTEROL 39 mg/dL; LDL CHOLESTEROL,CALCULATED 120 mg/dL; LDL/HDL RATIO 3.1 (<3.6); POTASSIUM 4.3 mmol/L (3.5-4.5); SODIUM 138 mmol/L (135-145); TOTAL PROTEIN 6.6 g/dL (6.4-8.9); TRIGLYCERIDES 134 mg/dL (48-352); VLDL CHOLESTEROL 27 mg/dL
== END 2023-05-16 08:21 | disposition home or self-care (01) ==
LOC: LAB 08:20
PROVIDERS: ATTEND Family Medicine
DX: E78.5 Hyperlipidemia, unspecified (principal); N40.0 Benign prostatic hyperplasia without lower urinary tract symptoms; E03.9 Hypothyroidism, unspecified; R53.1 Weakness
CPT/HCPCS: 36415; 80053; 80061; 83721; 84153; 84443; 85025; 85610

== ENCOUNTER 2023-06-14 12:03 | Outpatient (CLI) | payer BC | END 2023-06-14 12:04 | disposition home or self-care (01) | LOC: LAB 12:03 | PROVIDERS: ATTEND Family Medicine | DX: Z79.01 Long term (current) use of anticoagulants (principal); Z95.2 Presence of prosthetic heart valve | CPT/HCPCS: 36416; 85610 ==

== ENCOUNTER 2023-08-14 11:44 | Outpatient (CLI) | payer BC | END 2023-08-14 11:45 | disposition home or self-care (01) | LOC: LAB 11:44 | PROVIDERS: ATTEND Family Medicine | DX: Z51.81 Encounter for therapeutic drug level monitoring (principal); Z79.01 Long term (current) use of anticoagulants; Z95.2 Presence of prosthetic heart valve | CPT/HCPCS: 36416; 85610 ==

== ENCOUNTER 2023-09-18 09:25 | Outpatient (CLI) | payer BC | END 2023-09-18 09:26 | disposition home or self-care (01) | LOC: LAB 09:25 | PROVIDERS: ATTEND Family Medicine | DX: Z51.81 Encounter for therapeutic drug level monitoring (principal); Z79.01 Long term (current) use of anticoagulants; Z95.2 Presence of prosthetic heart valve | CPT/HCPCS: 36416; 85610 ==

== ENCOUNTER 2023-10-08 14:13 | Outpatient (CLI) | payer BC | END 2023-10-08 14:14 | disposition home or self-care (01) | LOC: LAB 14:13 | PROVIDERS: ATTEND Family Medicine | DX: Z51.81 Encounter for therapeutic drug level monitoring (principal); Z79.01 Long term (current) use of anticoagulants; Z95.2 Presence of prosthetic heart valve | CPT/HCPCS: 36416; 85610 ==

== ENCOUNTER 2023-11-29 14:16 | Outpatient (CLI) | payer BC | END 2023-11-29 14:17 | disposition home or self-care (01) | LOC: LAB 14:16 | PROVIDERS: ATTEND Family Medicine | DX: Z79.01 Long term (current) use of anticoagulants (principal); Z95.2 Presence of prosthetic heart valve | CPT/HCPCS: 36416; 85610 ==

== ENCOUNTER 2024-01-28 14:46 | Outpatient (CLI) | payer BC | END 2024-01-28 14:47 | disposition home or self-care (01) | LOC: LAB 14:46 | PROVIDERS: ATTEND Family Medicine | DX: Z79.01 Long term (current) use of anticoagulants (principal); Z95.2 Presence of prosthetic heart valve | CPT/HCPCS: 36416; 85610 ==

== ENCOUNTER 2024-04-09 14:25 | Outpatient (CLI) | payer BC | END 2024-04-09 14:26 | disposition home or self-care (01) | LOC: LAB 14:25 | PROVIDERS: ATTEND Family Medicine | DX: Z51.81 Encounter for therapeutic drug level monitoring (principal); Z79.01 Long term (current) use of anticoagulants; Z95.2 Presence of prosthetic heart valve | CPT/HCPCS: 36416; 85610 ==